=== PATIENT | female | born 1975 | race Caucasian/White ===

== ENCOUNTER 2020-01-17 05:21 | Emergency (ER) | payer SELFPAY ==
--- NOTE | 2020-01-17 05:55 | EDM.PDOC ---
ED HPI GENERAL MEDICAL PROBLEM - General Chief Complaint: Chest Pain Stated Complaint: CHEST PAIN Time Seen by Provider: 01/17/20 05:40 Source of Information: Reports: Patient History Limitations: Reports: No Limitations - History of Present Illness INITIAL COMMENTS - FREE TEXT/NARRATIVE: Ms. Juarez is a very pleasant 44-year-old woman with a past medical history significant for suspected asthma, hypothyroidism, and chronic lower extremity edema of uncertain etiology, who now presents to the ED with a complaint of upper left chest pain that developed around 12:30 yesterday afternoon, , 01/16/2020. She states that the sensation was initially an achy tightness, but has become more sharp and stabbing, as well as burning. She states that it is a pain, not a discomfort. She has not identified any modifiers. The pain resolved for about 30 minutes yesterday, but otherwise has been constant the entire time. She has associated nausea, but no emesis. She feels slightly dyspneic. She found herself to be diaphoretic this morning, and she feels quite anxious, especially with "all that's going on" with respect to COVID-19. No prior similar symptoms. The patient did not take any [id number] or home remedies prior to coming to the ED. Other than the above symptoms, the patient denies recent fever, chills, cough, dyspnea, chest pain, palpitations, nausea, vomiting, constipation, diarrhea, abdominal pain, urinary symptoms, recent weight gain or weight loss, recent bloody bowel movements or black bowel movements, recent joint aches, headaches, or rashes. Here in the ED, the patient's initial BP is found to be mildly elevated at 148/ 101, otherwise, she is hemodynamically stable, afebrile, saturating 100% on room air. The patient's PCP is Poonam Barber NP. She did not receive an influenza vaccine this season, but agreed to receive one here today. Left Chest Pain Score (Numeric/FACES): 6 - Related Data Allergies Allergy/AdvReac Type Severity Reaction Status Date / Time aspirin Allergy Hives Verified 01/17/20 05:38 Penicillins Allergy Cannot Verified 01/17/20 05:38 Remember Home Meds: Home Meds Levothyroxine [Synthroid] 88 mcg PO ACBREAKFAST 01/17/20 [History] Orphenadrine [Norflex] 1 tab PO Q12H PRN #14 tab.er 01/17/20 [Rx] Past Medical History Respiratory History: Reports: Asthma (suspected, not tested) Musculoskeletal History: Reports: Other (See Below) (BLE edema of undetermined etiology) Endocrine/Metabolic History: Reports: Hypothyroidism - Past Surgical History GI Surgical History: Reports: Cholecystectomy (1998) Female Surgical History: Reports: Cervical Cryotherapy (x 4), Tubal Ligation , Other (See Below) (Righ ovarian cystectomy) Social & Family History - Tobacco Use Smoking Status *Q: Never Smoker - Caffeine Use Caffeine Use: Reports: None - Alcohol Use Alcohol Use History: Yes Alcohol Use Frequency: Socially - Recreational Drug Use Recreational Drug Use: No - Living Situation & Occupation Living situation: Reports: , with Family (2 kids) 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 ED EXAM, GENERAL - Physical Exam Exam: See Below Exam Limited By: No Limitations General Appearance: Alert, WD/WN, No Apparent Distress Eye Exam: Bilateral Eye: EOMI, Normal Inspection Ears: Normal External Exam, Hearing Grossly Normal Nose: Normal Inspection Throat/Mouth: Normal Inspection, Normal Lips, Normal Voice, No Airway Compromise Head: Atraumatic, Normocephalic Neck: Normal Inspection, Full Range of Motion Respiratory/Chest: No Respiratory Distress, Lungs Clear, Normal Breath Sounds, No Accessory Muscle Use, Other (The patient states that her left upper chest, where her pain is, it is tender to palpation, but that it is a different pain than the pain that brings her to the ED) Cardiovascular: Normal Peripheral Pulses, Regular Rate, Rhythm, No Gallop, No JVD, No Murmur, No Rub Peripheral Pulses: 4+: Radial (L), Radial (R) GI/Abdominal: Normal Bowel Sounds, Soft, Non-Tender, No Organomegaly, No Distention, No Abnormal Bruit, No Mass (Female) Exam: Deferred Rectal (Female) Exam: Deferred Back Exam: Normal Inspection, Full Range of Motion, NT Extremities: Normal Inspection, Normal Range of Motion, Normal Capillary Refill , Other (2-3+ non-pitting BLE edema) Neurological: Alert, Oriented, Normal Cognition, No Motor/Sensory Deficits Psychiatric: Normal Affect Skin Exam: Warm, Dry, Intact, Normal Color, No Rash EKG INTERPRETATION EKG Date: 01/17/20 Time: 05:27 Rhythm: NSR Rate (Beats/Min): 87 [place]: Normal P-Wave: Present QRS: Normal (Late transition) ST-T: Normal QT: Normal Comparison: NA - No Prior EKG Course - Vital Signs Last Recorded V/S: Last Vital Signs Temp 36.1 C 01/17/20 05:30 Pulse 84 01/17/20 05:30 Resp 18 01/17/20 05:30 BP 148/101 H 01/17/20 05:30 Pulse Ox 100 01/17/20 05:30 - Orders/Labs/Meds Orders: Active Orders 24 hr Category Date Time Status EKG Documentation Completion [RC] STAT Care 01/17/20 05:33 Active Influenza Vaccine Charge [RC] .DISCHARGE Care 01/17/20 05:51 Active Chest 2V [CR] Stat Exams 01/17/20 05:51 Ordered CBC WITH MANUAL DIFF [HEME] Stat Lab 01/17/20 06:00 Results Ibuprofen [Motrin] Med 01/17/20 06:59 Once 600 mg PO ONETIME ONE Labs: Laboratory Tests 01/17/20 01/17/20 01/17/20 Range/Units 06:00 06:00 06:00 WBC 4.36 (3.98-10.04) K/mm3 RBC 4.06 (3.98-5.22) M/mm3 Hgb 11.9 (11.2-15.7) gm/dl Hct 35.6 (34.1-44.9) % MCV 87.7 (79.4-94.8) fl MCH 29.3 (25.6-32.2) pg MCHC 33.4 (32.2-35.5) g/dl RDW Std Deviation 40.9 (36.4-46.3) fL Plt Count 213 (182-369) K/mm3 MPV 9.1 L (9.4-12.3) fl D-Dimer, Quantitative 0.37 (0.19-0.50) mg/L Sodium 143 (136-145) mEq/L Potassium 4.1 (3.5-5.1) mEq/L Chloride 108 H (98-107) mEq/L Carbon Dioxide 25 (21-32) mEq/L Anion Gap 14.1 (5-15) BUN 16 (7-18) mg/dL Creatinine 0.9 (0.55-1.02) mg/dL Est Cr Clr Drug Dosing 68.16 mL/min Estimated GFR (MDRD) > 60 (>60) mL/min BUN/Creatinine Ratio 17.8 (14-18) Glucose 94 (74-106) mg/dL Calcium 8.6 (8.5-10.1) mg/dL Total Bilirubin 0.4 (0.2-1.0) mg/dL AST 13 L (15-37) U/L ALT 19 (14-59) U/L Alkaline Phosphatase 59 (46-116) U/L Troponin I < 0.017 (0.00-0.056) ng/mL Total Protein 7.2 (6.4-8.2) g/dl Albumin 3.6 (3.4-5.0) g/dl Globulin 3.6 gm/dL Albumin/Globulin Ratio 1.0 (1-2) Meds: Medications Discontinued Medications Generic Name Dose Route Start Last Admin Trade Name Freq PRN Reason Stop Dose Admin Influenza Virus Vaccine 60 mcg 01/17/20 06:00 01/17/20 06:18 Fluzone Quad [id number] Syringe IM 01/17/20 06:01 60 mcg .ONCE ONE Administration Orphenadrine Citrate 100 mg 01/17/20 06:58 Norflex PO 01/17/20 06:59 ONETIME STA - Re-Assessments/Exams Free Text/Narrative Re-Assessment/Exam: 01/17/20 05:52 Based on the patient's history and physical exam, I doubt that her chest pain is cardiac in etiology, however, I have ordered a work-up that includes blood work and a chest x-ray. Her ECG, obtained at triage, does not reflect ischemic changes. 01/17/20 06:53 Two-view chest radiograph appears to be grossly normal. The cardiac silhouette is within normal limits. No pulmonary vascular congestion. No pleural effusions. No focal infiltrate. No pneumothorax. Formal read per the Radiologist pending. The patient's CBC is unremarkable. Her CMP is remarkable for chloride slightly elevated 108, and is otherwise unremarkable. Her troponin is undetectably low. Her D-dimer is within normal limits at 0.37. 01/17/20 07:00 Test results discussed with the patient. As above, today's work-up is entirely unremarkable. The cause of her pain is most likely musculoskeletal in etiology. I am recommending Norflex and ibuprofen. The patient agreed. While her chart indicates that she is allergic to penicillin, she states that she is able to take ibuprofen without difficulty. The patient will be given an influenza vaccine prior to discharge. Departure - Departure Time of Disposition: 07:00 Disposition: Home, Self-Care 01 Condition: Good Clinical Impression: Musculoskeletal chest pain - Discharge Information *PRESCRIPTION DRUG MONITORING PROGRAM REVIEWED*: Not Applicable *COPY OF PRESCRIPTION DRUG MONITORING REPORT IN PATIENT KASSANDRA: Not Applicable Referrals: Poonam Barber NP [Primary Care Provider] - Forms: ED Department Discharge Additional Instructions: You were seen in the emergency room for left-sided chest pain, along with nausea , shortness of breath, and anxiety, that developed afternoon, 2019. Work-up in the ER included blood work, a chest x-ray, and an ECG. Your entire work-up is unremarkable. You have not suffered a heart attack. You do not have pneumonia. You do not have a collapsed lung. You do not have a blood clot in your lungs. Based on your history, physical exam, and ER tests, the cause of your chest pain is most likely musculoskeletal in etiology. You have been started on the muscle relaxant Norflex, and a prescription for Norflex has been sent to the [facility], located just south and across the [address] from [facility]. Take 1 tablet of Norflex every 12 hours, starting this evening, 01/17/2020, as prescribed. Norflex works well with ibuprofen. Take 3 tablets (600 mg) of [id number] ibuprofen every 8 hours, with food, as needed for discomfort. If your symptoms persist, please follow-up with your PCP, Poonam Barber NP. If your symptoms worsen, please do not hesitate to return to the ER. Sepsis Event Note - Evaluation Sepsis Screening Result: No Definite Risk - Focused Exam Vital Signs: Vital Signs Temp Pulse Resp BP Pulse Ox 01/17/20 05:30 36.1 C 84 18 148/101 H 100 Date Exam was Performed: 01/17/20 Time Exam was Performed: 07:00 - My Orders Last 24 Hours: My Active Orders 01/17/20 05:33 EKG Documentation Completion [RC] STAT 01/17/20 05:51 Influenza Vaccine Charge [RC] .DISCHARGE Chest 2V [CR] Stat 01/17/20 06:00 CBC WITH MANUAL DIFF [HEME] Stat 01/17/20 06:59 Ibuprofen [Motrin] 600 mg PO ONETIME ONE - Assessment/Plan Last 24 Hours: My Active Orders 01/17/20 05:33 EKG Documentation Completion [RC] STAT 01/17/20 05:51 Influenza Vaccine Charge [RC] .DISCHARGE Chest 2V [CR] Stat 01/17/20 06:00 CBC WITH MANUAL DIFF [HEME] Stat 01/17/20 06:59 Ibuprofen [Motrin] 600 mg PO ONETIME ONE
[2020-01-17] MEDS ORDERED: FLU Vacc QS2019-20(6MOS+)/PF 60 MCG/0.5 ML SYRINGE IM ONE (06:00)
[2020-01-17] MEDS ORDERED: Orphenadrine 100 MG Tab.ER PO STA (06:58)
[2020-01-17] MEDS ORDERED: Ibuprofen 600 MG Tab PO ONE (06:59)
[2020-01-17] MEDS ORDERED: Ibuprofen 600 MG Tab ONE (07:14)
--- NOTE | 2020-01-17 07:50 | CR ---
Chest: Two views of the chest were obtained. Comparison: Prior chest x-ray of 10/10/18. Heart size and mediastinum are normal. Lungs are clear. Bony structures appear within normal limits. Impression: 1. Nothing acute is appreciated on two-view chest x-ray. Diagnostic code #1 Study was dictated in MDT
== END 2020-01-17 07:18 | disposition home or self-care (01) ==
LOC: JD.ED 05:21
DX: R07.89 Other chest pain (principal); Z23 Encounter for immunization; E03.9 Hypothyroidism, unspecified; Z88.8 Allergy status to other drugs, medicaments and biological substances; Z88.0 Allergy status to penicillin; Z79.899 Other long term (current) drug therapy
CPT/HCPCS: 36415; 71046; 80053; 84484; 85007; 85027; 85379; 90471; 90686; 93005; 99285; A9270; 93010; 99283; G0008

== ENCOUNTER 2024-03-22 09:32 | Emergency (ER) | payer MEDICAID ==
[2024-03-22] MEDS: Clopidogrel 75 MG Tab PO ONE (10:16)
[2024-03-22 10:44] LABS: BASOPHILS PERCENT AUTO 0.8 % (0.0-1.0); EOSINOPHILS ABSOLUTE AUTO 0.3 K/mm3 (0.0-0.4); EOSINOPHILS PERCENT AUTO 6.5 % (0.0-6.0); HEMATOCRIT 36.3 % (37.0-47.0); HEMOGLOBIN 12.4 gm/dl (12.0-16.0); IMMATURE GRAN ABSOLUTE AUTO 0.02 K/mm3 (0.00-0.05); IMMATURE GRAN PERCENT AUTO 0.4 % (0.0-0.4); LYMPHOCYTES ABSOLUTE AUTO 1.1 K/mm3 (1.0-4.8); LYMPHOCYTES PERCENT AUTO 23.1 % (24.0-44.0); MEAN CORPUSCULAR HEMOGLOBIN 29.5 pg (28.0-32.0); MEAN CORPUSCULAR HGB CONC 34.2 g/dl (32.0-36.0); MEAN CORPUSCULAR VOLUME 86.4 fl (83.0-99.0); MEAN PLATELET VOLUME 8.9 fl (9.4-12.3); MONOCYTES ABSOLUTE AUTO 0.6 K/mm3 (0.0-0.8); MONOCYTES PERCENT AUTO 12.2 % (0.0-8.0); NEUTROPHILS ABSOLUTE AUTO 2.7 K/mm3 (1.8-7.7); PLATELET COUNT,PLT 228 K/mm3 (150-400); WHITE BLOOD CELL COUNT,WBC 4.76 K/mm3 (3.9-11.3)
[2024-03-22 11:04] LABS: INR 0.96; PROTHROMBIN TIME 10.3 SECONDS (9.7-12.0)
[2024-03-22 11:05] LABS: D-DIMER QUANTITATIVE 0.36 mg/L (0.19-0.50)
[2024-03-22 11:06] LABS: PTT,PARTIAL THROMBOPLSTIN TIME 26.6 SECONDS (21.7-31.4)
[2024-03-22 11:10] LABS: ALBUMIN 3.8 g/dl (3.4-5.0); ANION GAP 11.2 (5-15); BILIRUBIN TOTAL 0.5 mg/dL (0.2-1.0); CALCIUM 8.8 mg/dL (8.5-10.1); EST CRCL DRUG DOSING (CG) 58.76 mL/min; MAGNESIUM 2.1 mg/dL (1.8-2.4); PHOSPHORUS 2.6 mg/dL (2.6-4.7); POTASSIUM,K 4.2 mEq/L (3.5-5.1); PROTEIN TOTAL,TP 7.8 g/dl (6.4-8.2)
[2024-03-22 11:17] LABS: APPEARANCE,URINE CLOUDY (Clear); BILIRUBIN,URINE NEGATIVE (Negative); COLOR,URINE ORANGE (Yellow); GLUCOSE,URINE NEGATIVE (Negative); KETONES,URINE NEGATIVE (Negative); LEUKOCYTE ESTERASE,URINE NEGATIVE (Negative); NITRITE,URINE NEGATIVE (Negative); OCCULT BLOOD,URINE 3+ (Negative); PH,URINE 6.5 (5.0-8.0); PROTEIN,URINE 2+ (Negative); UROBILINOGEN,URINE 0.2 (0.2-1.0)
[2024-03-22 12:52] LABS: BACTERIA,URINE FEW /hpf (FEW); EPITHELIAL CELLS,URINE 0-5 /hpf (0-5); MUCUS,URINE FEW /hpf (FEW); RBC,URINE 40-50 /hpf (0-5)
[2024-03-22] MEDS: hydrALAZINE 20 MG/ML SDV IVPUSH ONE ×2 (14:47→17:31)
[2024-03-22] MEDS: Metoprolol Tartrate 5 MG/5 ML SDV IVPUSH ONE ×2 (15:40→17:38)
[2024-03-22] MEDS: Ondansetron 4 MG/2 ML SDV IVPUSH ONE (15:40)
[2024-03-22] MEDS ORDERED: niCARdipine HCl 25 MG in Sodium Chloride 0.9% 250 ML IV SCH (17:00)
[2024-03-22] MEDS: cloNIDine 0.1 MG Tab PO ONE (17:28)
[2024-03-22] MEDS: amLODIPine 5 MG Tab PO ONE (17:28)
[2024-03-22] MEDS: Morphine 4 MG/ML Syringe IVPUSH ONE (17:29)
[2024-03-22] MEDS: Metoclopramide 10 MG/2 ML SDV IVPUSH ONE (18:07)
== END 2024-03-22 18:26 | disposition home or self-care (01) ==
LOC: JD.ED 09:32
DX: R07.89 Other chest pain (principal); I10 Essential (primary) hypertension; E78.00 Pure hypercholesterolemia, unspecified; J45.909 Unspecified asthma, uncomplicated; Z90.49 Acquired absence of other specified parts of digestive tract; Z79.899 Other long term (current) drug therapy; Z88.0 Allergy status to penicillin; Z88.8 Allergy status to other drugs, medicaments and biological substances
CPT/HCPCS: 36415; 70450; 70450-26; 71045; 71045-26; 80053; 81001; 81025; 83690; 83735; 83880; 84100; 84484; 85025; 85379; 85610; 85730; 96374; 96375; 96376; 99285-25; A9270-GY; J0360; J2270; J2405; J2765; J3490

== ENCOUNTER 2025-01-05 21:38 | Emergency (ER) | payer MEDICAID ==
[2025-01-05 22:06] LABS: BASOPHILS PERCENT AUTO 0.8 % (0.0-1.0); EOSINOPHILS ABSOLUTE AUTO 0.4 K/mm3 (0.0-0.4); EOSINOPHILS PERCENT AUTO 7.4 % (0.0-6.0); HEMATOCRIT 36.1 % (37.0-47.0); HEMOGLOBIN 12.3 gm/dl (12.0-16.0); IMMATURE GRAN ABSOLUTE AUTO 0.01 K/mm3 (0.00-0.05); IMMATURE GRAN PERCENT AUTO 0.2 % (0.0-0.4); LYMPHOCYTES ABSOLUTE AUTO 1.5 K/mm3 (1.0-4.8); LYMPHOCYTES PERCENT AUTO 30.1 % (24.0-44.0); MEAN CORPUSCULAR HEMOGLOBIN 29.4 pg (28.0-32.0); MEAN CORPUSCULAR HGB CONC 34.1 g/dl (32.0-36.0); MEAN CORPUSCULAR VOLUME 86.4 fl (83.0-99.0); MEAN PLATELET VOLUME 8.9 fl (9.4-12.3); MONOCYTES ABSOLUTE AUTO 0.7 K/mm3 (0.0-0.8); MONOCYTES PERCENT AUTO 13.8 % (0.0-8.0); NEUTROPHILS ABSOLUTE AUTO 2.4 K/mm3 (1.8-7.7); NEUTROPHILS PERCENT AUTO 47.7 % (41.0-71.0); PLATELET COUNT,PLT 232 K/mm3 (150-400); RED BLOOD CELL COUNT 4.18 M/mm3 (4.10-5.30); WHITE BLOOD CELL COUNT,WBC 5.01 K/mm3 (3.9-11.3)
[2025-01-05 22:31] LABS: A/G RATIO 0.9 (1-2); ALBUMIN 3.6 g/dl (3.4-5.0); ANION GAP 10.6 (5-15); BILIRUBIN TOTAL 0.4 mg/dL (0.2-1.0); BUN/CREATININE RATIO 10.8 (14-18); CREATININE 1.2 mg/dL (0.55-1.02); EST CRCL DRUG DOSING (CG) 48.43 mL/min; POTASSIUM,K 3.6 mEq/L (3.5-5.1); PROTEIN TOTAL,TP 7.7 g/dl (6.4-8.2)
[2025-01-05 22:53] LABS: MAGNESIUM 2.1 mg/dL (1.8-2.4); TSH 6.197 uIU/mL (0.358-3.74)
[2025-01-05] MEDS: Ondansetron 4 MG/2 ML SDV IVPUSH ONE (22:58)
[2025-01-05 23:36] LABS: T4 FREE 0.94 ng/dL (0.76-1.46)
== END 2025-01-06 01:22 | disposition home or self-care (01) ==
LOC: JD.ED 21:38
DX: R07.89 Other chest pain (principal); R94.6 Abnormal results of thyroid function studies; I10 Essential (primary) hypertension; E03.9 Hypothyroidism, unspecified; Z88.6 Allergy status to analgesic agent; Z88.0 Allergy status to penicillin; Z79.899 Other long term (current) drug therapy; Z79.890 Hormone replacement therapy
CPT/HCPCS: 36415; 71045; 80053; 83735; 84439; 84443; 84484; 85025; 93005; 96374; 99285; J2405; 93010; 99284

== ENCOUNTER 2025-01-23 08:42 | Day surgery (SDC) | payer MEDICAID ==
[2025-01-23] MEDS: Lactated Ringers 1,000 ML IV SCH (09:10)
[2025-01-23] MEDS ORDERED: propofoL 500 MG/50 ML 50 ML ONE (09:26)
[2025-01-23] MEDS ORDERED: Lidocaine 2% 5 ML SDV ONE (09:26)
[2025-01-23] MEDS: Ondansetron 4 MG/2 ML SDV IVPUSH ONE (10:30)
== END 2025-01-23 11:25 | disposition home or self-care (01) ==
LOC: JD.SDS 08:42
PROVIDERS: ATTEND Surgery
DX: K29.50 Unspecified chronic gastritis without bleeding (principal); K20.0 Eosinophilic esophagitis; K31.89 Other diseases of stomach and duodenum; I10 Essential (primary) hypertension; J45.909 Unspecified asthma, uncomplicated; E03.9 Hypothyroidism, unspecified; F41.9 Anxiety disorder, unspecified; Z79.890 Hormone replacement therapy; Z79.899 Other long term (current) drug therapy
CPT/HCPCS: 43239; C9777; J2003; J2405; J2704; J7120; 00731

== ENCOUNTER 2025-08-21 07:47 | Emergency (ER) | payer MEDICAID ==
[2025-08-21] MEDS: Acetaminophen/oxyCODONE 325-5 MG Tab PO ONE (09:42)
[2025-08-21] MEDS: Ondansetron 4 MG Tab.DIS PO ONE (09:42)
== END 2025-08-21 09:45 | disposition home or self-care (01) ==
LOC: JD.ED 07:47
DX: R51.9 Headache, unspecified (principal); R09.89 Other specified symptoms and signs involving the circulatory and respiratory systems; M35.9 Systemic involvement of connective tissue, unspecified; E03.9 Hypothyroidism, unspecified; Z88.0 Allergy status to penicillin; Z88.8 Allergy status to other drugs, medicaments and biological substances; Z79.890 Hormone replacement therapy; Z79.899 Other long term (current) drug therapy; Z90.49 Acquired absence of other specified parts of digestive tract
CPT/HCPCS: 99283; A9270